=== PATIENT | male | born 1975 | race African-American/Black ===

== ENCOUNTER 2018-01-20 00:48 | Emergency (ER) | payer OTHER ==
[~2018-01-20] VITALS: Ht 185.4 cm; Wt 100.0 kg
[2018-01-20 01:42] VITALS: BP 148/122
[2018-01-20] MEDS ORDERED: IBUPROFEN 600 MG TABLET PO ONE (01:45)
== END 2018-01-20 01:52 | disposition home or self-care (01) ==
LOC: EMS 00:49
DX: G43.909 Migraine, unspecified, not intractable, without status migrainosus (principal); F17.210 Nicotine dependence, cigarettes, uncomplicated; F12.90 Cannabis use, unspecified, uncomplicated; F19.90 Other psychoactive substance use, unspecified, uncomplicated; F14.90 Cocaine use, unspecified, uncomplicated; F11.90 Opioid use, unspecified, uncomplicated; Z88.6 Allergy status to analgesic agent
CPT/HCPCS: 99282